=== PATIENT | female | born 1990 ===

== ENCOUNTER 2020-11-17 06:56 | Emergency (ER) | payer OTHER ==
[~2020-11-17] VITALS: Ht 154.9 cm; Wt 61.2 kg
[2020-11-17] MEDS ORDERED: LEVOFLOXACIN500 MG PO (16:14)
== END 2020-11-17 16:16 | disposition home or self-care (01) ==
LOC: ER 06:56
DX: B34.9 Viral infection, unspecified (principal); K52.9 Noninfective gastroenteritis and colitis, unspecified; J18.9 Pneumonia, unspecified organism; Z11.52 Encounter for screening for COVID-19